=== PATIENT | female | born 1990 | race Caucasian/White ===

== ENCOUNTER 2018-12-12 09:53 | Inpatient (IN) | payer BC ==
[~2018-12-12] VITALS: Ht 160 cm; Wt 71.4 kg
[2018-12-12] MEDS ORDERED: NEWBORN KIT ONE (21:01)
[2018-12-12] MEDS: D5%-LACTATED RINGERS 1,000 ML IV SCH (21:01)
[2018-12-12] MEDS ORDERED: OXYTOCIN 30U/ 0.9% NaCL 500ML 500 ML IV PRN (21:01)
[2018-12-12] MEDS: LACTATED RINGERS 1,000 ML IV SCH (21:01)
[2018-12-12] MEDS ORDERED: OXYTOCIN 30U/ 0.9% NaCL 500ML 500 ML IV ONE (21:01)
[2018-12-12 21:20] VITALS: BP 134/87
[2018-12-12] MEDS ORDERED: METOCLOPRAMIDE 5 MG/ML, 2ML IVPush PRN (21:30)
[2018-12-12] MEDS ORDERED: TERBUTALINE 1 MG/ML, 1ML IVPush PRN (21:30)
[2018-12-12] MEDS ORDERED: CALCIUM CARBONATE 500 MG TAB.CHEW PO PRN (21:30)
[2018-12-12] MEDS ORDERED: FENTANYL PF 100 MCG/2ML IV PRN (21:30)
[2018-12-12] MEDS ORDERED: SODIUM CITRATE/CITRIC ACID 15 ML UDC PO PRN (21:30)
[2018-12-12] MEDS ORDERED: ONDANSETRON 2MG/ML, 2ML IVPush PRN (21:30)
[2018-12-12] MEDS ORDERED: FENTANYL PF 100 MCG/2ML IVPush PRN (21:30)
[2018-12-12] MEDS ORDERED: MISOPROSTOL 25 MCG TABLET ONE (21:35)
[2018-12-12] MEDS ORDERED: OXYTOCIN 30U/ 0.9% NaCL 500ML 500 ML ONE (21:35)
[2018-12-12 21:38] LABS: BASOPHILS # (AUTO) 0.06 x10^3/uL (0-0.1); BASOPHILS % (AUTO) 1 % (0-1); EOSINOPHILS # (AUTO) 0.01 x10^3/uL (0-0.4); EOSINOPHILS % (AUTO) 0 % (1-7); LYMPHOCYTES # (AUTO) 1.44 x10^3/uL (1-3.4); LYMPHOCYTES % (AUTO) 17 % (22-44); MD NO; MEAN CORPUSCULAR HEMOGLOBIN 28.5 pg (27.0-34.8); MEAN CORPUSCULAR HGB CONC 32.4 g/dL (32.4-35.8); MEAN CORPUSCULAR VOLUME 88.1 fL (80-100); MEAN PLATELET VOLUME 9.5 fL (7.4-10.4); MONOCYTES # (AUTO) 0.57 x10^3/uL (0.2-0.8); MONOCYTES % (AUTO) 7 % (2-9); NEUTROPHILS # (AUTO) 6.64 x10^3/uL (1.8-6.8); NEUTROPHILS % (AUTO) 76 % (42-75); PLATELET COUNT 288 x10^3/uL (130-400); RED BLOOD COUNT 3.97 x10^6/uL (3.82-5.3); RED CELL DISTRIBUTION WIDTH 13.6 % (9.6-15.2)
[2018-12-12] MEDS: MISOPROSTOL 25 MCG TABLET VG PRN (21:52)
[2018-12-12] MEDS ORDERED: LIDOCAINE 1%, 20ML ONE (22:16)
[2018-12-12] MEDS ORDERED: MISOPROSTOL 200 MCG TABLET ONE (22:17)
[2018-12-13] MEDS ORDERED: MISOPROSTOL 25 MCG TABLET ONE (02:07)
[2018-12-13] MEDS: MISOPROSTOL 25 MCG TABLET VG PRN (02:18)
[2018-12-13] MEDS: LACTATED RINGERS 1,000 ML IV SCH ×8 (05:01→23:36)
[2018-12-13] MEDS: D5%-LACTATED RINGERS 1,000 ML IV SCH ×3 (05:01→23:39)
[2018-12-13] MEDS: LACTATED RINGERS 1,000 ML IVBOLUS PRN ×2 (09:13→09:49)
[2018-12-13] MEDS ORDERED: FENTANYL PF 100 MCG/2ML ONE ×2 (09:14→10:04)
[2018-12-13] MEDS ORDERED: FENTANYL/BUPIV./NS/PF 250 ML EPIDCONT SCH ×2 (09:17→13:28)
[2018-12-13] MEDS ORDERED: EPHEDRINE 50 MG/ML, 1ML IVPush PRN ×2 (09:30→13:30)
[2018-12-13] MEDS ORDERED: BUPIVACAINE 0.25% ONE (10:04)
[2018-12-13] MEDS ORDERED: ONDANSETRON 2MG/ML, 2ML IVPush PRN (13:30)
[2018-12-13] MEDS ORDERED: LACTATED RINGERS 1,000 ML IVBOLUS PRN (13:30)
[2018-12-13 19:05] VITALS: BP 123/71
[2018-12-13] MEDS ORDERED: ACETAMINOPHEN 325 MG TABLET ONE (19:23)
[2018-12-13] MEDS ORDERED: GENTAMICIN PER PHARMACY MC PRN (19:30)
[2018-12-13] MEDS ORDERED: ACETAMINOPHEN 325 MG TABLET PO PRN (19:30)
[2018-12-13] MEDS ORDERED: AMPICILLIN 2 GM in SODIUM CHLORIDE 0.9% 100 ML IV SCH (19:30)
[2018-12-13] MEDS ORDERED: PHARMACOKINETIC MONITORING MC PRN (20:00)
[2018-12-13] MEDS ORDERED: PHARMACOKINETIC CONSULTATION MC ONE (20:00)
[2018-12-13] MEDS ORDERED: GENTAMICIN 300 MG in SODIUM CHLORIDE 0.9% 100 ML IV SCH (20:30)
[2018-12-14] MEDS: D5%-LACTATED RINGERS 1,000 ML IV SCH (05:01)
[2018-12-14] MEDS: LACTATED RINGERS 1,000 ML IV SCH (05:01)
[2018-12-14] MEDS: OXYTOCIN 30U/ 0.9% NaCL 500ML 500 ML IV SCH ×7 (05:11→13:47)
[2018-12-14] MEDS ORDERED: OXYTOCIN 30U/ 0.9% NaCL 500ML 500 ML IV SCH (05:11)
[2018-12-14] MEDS ORDERED: OXYTOCIN 30U/ 0.9% NaCL 500ML 500 ML ONE (05:14)
[2018-12-14] MEDS ORDERED: HYDROcodone/APAP 5/325 TABLET PO PRN (05:30)
[2018-12-14] MEDS ORDERED: BISACODYL 10 MG SUPP PR PRN (05:30)
[2018-12-14] MEDS ORDERED: ACETAMINOPHEN 325 MG TABLET PO PRN ×2 (05:30)
[2018-12-14] MEDS ORDERED: ONDANSETRON 2MG/ML, 2ML IV PRN (05:30)
[2018-12-14] MEDS ORDERED: MISOPROSTOL 200 MCG TABLET PR PRN (05:30)
[2018-12-14] MEDS ORDERED: CALCIUM CARBONATE 500 MG TAB.CHEW PO PRN (05:30)
[2018-12-14] MEDS: IBUPROFEN 600 MG TABLET PO PRN ×3 (07:26→19:36)
[2018-12-14] MEDS: PRENATAL VIT/IRON/FA 1 EACH TABLET PO SCH (07:26)
[2018-12-14] MEDS: DOCUSATE 100 MG CAPSULE PO PRN ×2 (07:26→19:36)
[2018-12-14 07:35] VITALS: BP 110/73
[2018-12-14 11:55] VITALS: BP 101/64
[2018-12-14 12:06] LABS: BASOPHILS # (AUTO) 0.03 x10^3/uL (0-0.1); BASOPHILS % (AUTO) 0 % (0-1); EOSINOPHILS # (AUTO) 0.01 x10^3/uL (0-0.4); EOSINOPHILS % (AUTO) 0 % (1-7); LYMPHOCYTES # (AUTO) 0.98 x10^3/uL (1-3.4); LYMPHOCYTES % (AUTO) 5 % (22-44); MD NO; MEAN CORPUSCULAR HGB CONC 32.9 g/dL (32.4-35.8); MEAN CORPUSCULAR VOLUME 88.3 fL (80-100); MEAN PLATELET VOLUME 9.1 fL (7.4-10.4); MONOCYTES # (AUTO) 0.55 x10^3/uL (0.2-0.8); MONOCYTES % (AUTO) 3 % (2-9); NEUTROPHILS # (AUTO) 16.82 x10^3/uL (1.8-6.8); NEUTROPHILS % (AUTO) 92 % (42-75); PLATELET COUNT 223 x10^3/uL (130-400); RED BLOOD COUNT 3.22 x10^6/uL (3.82-5.3); RED CELL DISTRIBUTION WIDTH 14.1 % (9.6-15.2)
[2018-12-14] MEDS: HYDROcodone/APAP 5/325 TABLET PO PRN ×2 (17:21→23:31)
[2018-12-14 17:29] VITALS: BP 113/67
[2018-12-14] MEDS ORDERED: DIPH,PERTUSS(ACELL),TET VAC/PF NC IM-VACC ONE (18:30)
[2018-12-14 20:00] VITALS: BP 98/59
[2018-12-14 23:30] VITALS: BP 101/68
[2018-12-15] MEDS: IBUPROFEN 600 MG TABLET PO PRN ×4 (03:05→23:39)
[2018-12-15 03:12] VITALS: BP 99/63
[2018-12-15] MEDS: HYDROcodone/APAP 5/325 TABLET PO PRN ×3 (04:09→21:08)
[2018-12-15] MEDS: PRENATAL VIT/IRON/FA 1 EACH TABLET PO SCH (08:51)
[2018-12-15] MEDS: DOCUSATE 100 MG CAPSULE PO PRN ×2 (08:51→21:09)
[2018-12-15 08:54] VITALS: BP 103/69
[2018-12-15 19:30] VITALS: BP 108/72
[2018-12-16] MEDS: HYDROcodone/APAP 5/325 TABLET PO PRN (04:46)
[2018-12-16] MEDS: IBUPROFEN 600 MG TABLET PO PRN (07:52)
[2018-12-16] MEDS: DOCUSATE 100 MG CAPSULE PO PRN (07:52)
[2018-12-16 08:01] VITALS: BP 89/56
[2018-12-16] MEDS ORDERED: HYDR-3240 PO (08:06)
[2018-12-16] MEDS: PRENATAL VIT/IRON/FA 1 EACH TABLET PO SCH (09:00)
== END 2018-12-16 11:30 | disposition home or self-care (01) | DRG 805 ==
LOC: LDIP 20:59 → 2NW 12-14 07:00
PROVIDERS: ADMIT Obstetrics & Gynecology; ATTEND Obstetrics & Gynecology
PROC: 10E0XZZ Delivery of Products of Conception, External Approach (ICD-10-PCS; principal; 2018-12-14)
PROC: 10907ZC Drainage of Amniotic Fluid, Therapeutic from Products of Conception, Via Natural or Artificial Opening (ICD-10-PCS; 2018-12-14)
PROC: 0HQ9XZZ Repair Perineum Skin, External Approach (ICD-10-PCS; 2018-12-14)
PROC: 10H07YZ Insertion of Other Device into Products of Conception, Via Natural or Artificial Opening (ICD-10-PCS; 2018-12-14)
PROC: 3E0R3BZ Introduction of Anesthetic Agent into Spinal Canal, Percutaneous Approach (ICD-10-PCS; 2018-12-14)
PROC: 00HU33Z Insertion of Infusion Device into Spinal Canal, Percutaneous Approach (ICD-10-PCS; 2018-12-14)
DX: O48.0 Post-term pregnancy (principal); O41.1230 Chorioamnionitis, third trimester, not applicable or unspecified; Z37.0 Single live birth; O75.2 Pyrexia during labor, not elsewhere classified; O76 Abnormality in fetal heart rate and rhythm complicating labor and delivery; Z3A.40 40 weeks gestation of pregnancy; O70.0 First degree perineal laceration during delivery
CPT/HCPCS: 36415; J7121; 82803; 85025; 86850; 86900; 90715; G0378; J0290; J3010; J1580; J2590; J7120